=== PATIENT | female | born 1955 | race Caucasian/White ===

== ENCOUNTER → 2019-02-27 | Outpatient (CLI) | payer OTHER ==
[~2019-02-27] MED LIST: ACET650S21 PO; ASCO100019 PO; BIOTIN PO; BISA10SU54 PR; CALC625T23 PO; CALCIUM PO; CARB1TAB5 PO; CHOL200024 PO; DENO60DI IV; DICL1ADH15 TP; DSS PO; FENO160T PO; GLUC-121 PO; LOSA1TAB19 PO; MAGN500T PO; MULT-516 PO; OMEG-170 PO; PREG50CA PO; RELAFEN PO; THYROXINE PO; TIZA4TAB PO; TRAM50TA2 PO; TURM538C PO; TYRO500C2 PO; VITA1TAB19 PO; ZOLP-413 PO
[2019-02-27 14:02] LABS: MICROSCOPIC NOT IND
[2019-02-27 14:05] LABS: CULTURE INDICATED? NO
[2019-02-27 14:11] LABS: INTERNATIONAL NORMALIZED RATIO 1.05 (0.93-1.1)
[2019-02-27 14:12] LABS: ALANINE AMINOTRANSFERASE 13 U/L (12-78); ALBUMIN 4.6 g/dL (3.4-5.0); ANION GAP 6 mmol/L (5-15); CALCIUM 9.4 mg/dL (8.5-10.1); CHLORIDE 111 mmol/L (98-107); CREATININE 0.88 mg/dL (0.55-1.02)
[2019-02-27 14:14] LABS: ALKALINE PHOSPHATASE 34 U/L (45-117); BILIRUBIN,TOTAL 0.4 mg/dL (0.2-1.0); TOTAL PROTEIN 7.7 g/dL (6.4-8.2)
[2019-02-27 14:23] LABS: BASOPHILS # (AUTO) 0.03 x10^3/uL (0-0.1); BASOPHILS % (AUTO) 0 % (0-1); EOSINOPHILS # (AUTO) 0.09 x10^3/uL (0-0.4); EOSINOPHILS % (AUTO) 1 % (1-7); LYMPHOCYTES # (AUTO) 2.95 x10^3/uL (1-3.4); LYMPHOCYTES % (AUTO) 34 % (22-44); MD NO; MEAN CORPUSCULAR HEMOGLOBIN 30.7 pg (27.0-34.8); MEAN CORPUSCULAR HGB CONC 33.1 g/dL (32.4-35.8); MEAN CORPUSCULAR VOLUME 92.7 fL (80-100); MONOCYTES # (AUTO) 0.53 x10^3/uL (0.2-0.8); MONOCYTES % (AUTO) 6 % (2-9); NEUTROPHILS # (AUTO) 5.01 x10^3/uL (1.8-6.8); NEUTROPHILS % (AUTO) 58 % (42-75); PLATELET COUNT 443 x10^3/uL (130-400); RED BLOOD COUNT 4.87 x10^6/uL (3.82-5.3); RED CELL DISTRIBUTION WIDTH 13.7 % (9.6-15.2)
== END | disposition home or self-care (01) ==
LOC: STAR 12:37
PROVIDERS: ATTEND Neurological Surgery
DX: M47.816 Spondylosis without myelopathy or radiculopathy, lumbar region (principal); M48.061 Spinal stenosis, lumbar region without neurogenic claudication; M43.06 Spondylolysis, lumbar region
CPT/HCPCS: 36415; 71046; 72110; 80053; 81003; 85025; 85610; 85730; 93005

== ENCOUNTER 2019-10-13 10:57 | Outpatient (CLI) | payer OTHER ==
[~2019-10-13] VITALS: Ht 160 cm; Wt 62.0 kg
[~2019-10-13 10:57] MED LIST changes: +OXYC-302 PO; +TIZA4CAP2 PO; -TIZA4TAB PO; +TIZA4TAB2 PO
[2019-10-13 11:42] VITALS: BP 149/81
[2019-10-13] MEDS ORDERED: LIDOCAINE 1%, 10ML ONE ×2 (12:37)
[2019-10-13] MEDS ORDERED: GADOTERATE 7.5 MMOL/15 ML SYR ONE (12:47)
== END 2019-10-13 18:05 | disposition home or self-care (01) ==
LOC: RAD 10:57 → SDC 10:57 → OUT 18:05
PROVIDERS: ATTEND Specialist
DX: G24.9 Dystonia, unspecified
CPT/HCPCS: 62270; 70553; 77003; A9575; J3490

== ENCOUNTER 2020-10-20 12:15 | Observation (INO) | payer MEDICARE, OTHER ==
[~2020-10-20] VITALS: Ht 160 cm; Wt 69.0 kg
[~2020-10-20 12:15] MED LIST changes: -DICL1ADH15 TP; +DICL1PAT11 TP
--- NOTE | 2020-10-20 12:35 | NUR ---
TRIAGE: PATIENT ARRIVES WITH THREE DAYS OF CHEST PAIN THAT TODAY WITH EXERTION (WALKING DOGS) IS ACCOMPANIED WTIH SOB. 95% RA. PATIENT HAS HISTORY CERVICAL DYSTONIA. SHE LIVES WITH HER THREE GRANDKIDS WHO ARE PENDING COVID TESTS. FATIGUE/DIARREA.
[2020-10-20 15:18] LABS: BASOPHILS % (AUTO) 1 % (0-1); EOSINOPHILS % (AUTO) 1 % (1-7); LYMPHOCYTES % (AUTO) 33 % (22-44); MEAN CORPUSCULAR HEMOGLOBIN 31.3 pg (27.0-34.8); MEAN CORPUSCULAR HGB CONC 33.5 g/dL (32.4-35.8); MEAN PLATELET VOLUME 8.1 fL (7.4-10.4); MONOCYTES % (AUTO) 6 % (2-9); NEUTROPHILS % (AUTO) 58 % (42-75); PLATELET COUNT 395 x10^3/uL (130-400); RED BLOOD COUNT 4.73 x10^6/uL (3.82-5.3); RED CELL DISTRIBUTION WIDTH 13.2 % (9.6-15.2)
[2020-10-20 15:24] LABS: MD NO
[2020-10-20 15:30] LABS: ALBUMIN 4.4 g/dL (3.4-5.0); ANION GAP 6 mmol/L (5-15); CALCIUM 10.5 mg/dL (8.5-10.1); CHLORIDE 107 mmol/L (98-107)
[2020-10-20 15:36] LABS: ALANINE AMINOTRANSFERASE 53 U/L (12-78); ALKALINE PHOSPHATASE 94 U/L (45-117); BILIRUBIN,TOTAL 0.3 mg/dL (0.2-1.0); CREATININE 1.09 mg/dL (0.55-1.02); TOTAL PROTEIN 7.8 g/dL (6.4-8.2); TROPONIN I 0.045 ng/mL (0.000-0.045)
--- NOTE | 2020-10-20 16:30 | NUR ---
SAFETY SECURITY OFFICER: PT TO ROOM FROM LOBBY VIA W/C
--- NOTE | 2020-10-20 16:57 | NUR ---
pt c/o intermittent sharp cp starting 1100 today. Pt reports bradycardia hx. sitting up talking with rn, hx of HTN pt hypertensive in ED. Awaiting ERMD eval.
--- NOTE | 2020-10-20 17:16 | NUR ---
ERPA IN TO ASSESS PT AND DISCUSS PLAN OF CARE.
[2020-10-20] MEDS ORDERED: METOPROLOL 1 MG/ML, 5ML IVPush ONE (17:30)
[2020-10-20] MEDS ORDERED: ASPIRIN 81 MG TABLET CHEW PO ONE (17:30)
[2020-10-20] MEDS ORDERED: NITROGLYCERIN OINT 2%, 1GM TP ONE ×2 (17:30→17:39)
[2020-10-20] MEDS ORDERED: METOPROLOL 1 MG/ML, 5ML ONE (17:39)
[2020-10-20] MEDS ORDERED: ASPIRIN 81 MG TABLET CHEW ONE (17:39)
--- NOTE | 2020-10-20 17:46 | NUR ---
DUE TO CURRENT BP, HOLDING NITRO AND METOPROLOL PER DR LANG VERBAL ORDERS. ASA ADMINISTERED. PT MAKES PLEASANT CONVERSATION WITH STAFF.
[2020-10-20] MEDS ORDERED: LOSA1TAB22 PO (18:17)
[2020-10-20] MEDS ORDERED: GABAPENTIN PO (18:18)
[2020-10-20] MEDS ORDERED: GABA300C PO (18:18)
[2020-10-20] MEDS ORDERED: TOPOMAX PO (18:21)
[2020-10-20] MEDS ORDERED: [UNRECOGNIZED DRUG - OTHER] IM (18:21)
[2020-10-20] MEDS ORDERED: POTASSIUM CHLORIDE 20 MEQ TAB.ER.PRT ONE (18:29)
[2020-10-20] MEDS ORDERED: SODIUM CHLORIDE FLUSH 10ML SYR IVF PRN (18:30)
[2020-10-20] MEDS ORDERED: POTASSIUM CHLORIDE 20 MEQ TAB.ER.PRT PO ONE (18:30)
--- NOTE | 2020-10-20 18:32 | NUR ---
PT SITTING UP IN BED. NAD NOTED AT THIS TIME. PLEASANT WITH STAFF. RESPIRATIONS EVEN AND UNLABORED ON RA.
[2020-10-20] MEDS ORDERED: BISACODYL 10 MG SUPP PR PRN (19:00)
[2020-10-20] MEDS ORDERED: POLYETHYLENE GLYCOL 17 GM PACKET PO PRN (19:00)
[2020-10-20] MEDS ORDERED: OXYcodone/APAP 5/325MG TABLET PO PRN (19:00)
[2020-10-20] MEDS ORDERED: ACETAMINOPHEN 325 MG TABLET PO PRN (19:00)
[2020-10-20] MEDS ORDERED: ONDANSETRON ODT 4 MG PO PRN (19:00)
--- NOTE | 2020-10-20 19:33 | NUR ---
PT AMBULATING BACK TO BED FROM GETTING UP TO USE BATHROOM UNSUPERVISED. NAD NOTED. PT AMBULATED WELL WITH CANE. CARDIAC, BP AND SPO2 MONITOR ATTACHED. PT REPORTS HOME CARE FOR RIVERA'S IN BETWEEN BOTOX INJECTIONS IS WARM COMPRESS OR MASSAGE FROM SPECIFIC THERAPIST. WARM COMPRESS PROVIDED.
[2020-10-20] MEDS ORDERED: ACETAMINOPHEN 325 MG TABLET ONE (19:50)
[2020-10-20] MEDS ORDERED: NITROGLYCERIN SINGLE TAB 0.4 MG SL ONE ×2 (20:08→22:59)
[2020-10-20] MEDS: NITROGLYCERIN 0.4 MG BOTTLE (25 TABS) SL PRN ×2 (20:10→23:04)
--- NOTE | 2020-10-20 20:21 | NUR ---
PT REPORTED / CP, FOLLOWING NITRO CP 11/13. "MY HEADACHE IS EVEN GETTING BETTER ALSO" PREVIOUSLY RIVERA 05/13, NOW 01/11. "IT'S VERY LIVEABLE NOW."
[2020-10-20] MEDS: SODIUM CHLORIDE FLUSH 10ML SYR IVF SCH (21:00)
[2020-10-20] MEDS ORDERED: GABAPENTIN 300 MG CAPSULE PO SCH ×2 (21:00)
[2020-10-20] MEDS ORDERED: GABAPENTIN 300 MG CAPSULE ONE (21:09)
--- NOTE | 2020-10-20 21:30 | NUR ---
REPORT TO DA RN.
--- NOTE | 2020-10-20 21:30 | NUR ---
aSSUMED CARE OF PT.
[2020-10-20] MEDS ORDERED: HEPARIN 5,000 UNITS/ML, 1ML ONE (21:54)
[2020-10-20] MEDS: HEPARIN 5,000 UNITS/ML, 1ML SQ SCH (21:58)
[2020-10-20 22:52] LABS: TROPONIN I 0.052 ng/mL (0.000-0.045)
[2020-10-20] MEDS: TOPIRAMATE 25 MG TABLET PO SCH (23:05)
--- NOTE | 2020-10-20 23:17 | NUR ---
PT REPORTS CHEST PAIN, REQUESTS AND GIVEN PRN NITRO SL, PAIN 6/, DENIES SOB. PT MEDICATED WITH SCHEDULED MEDICATIONS. WILL MONITOR FOR PAIN IMPROVEMENT.
[2020-10-20] MEDS: TIZANIDINE 4MG TABLET PO PRN (23:57)
--- NOTE | 2020-10-21 01:50 | NUR ---
Report given to John HUMPHREY.
--- NOTE | 2020-10-21 01:56 | NUR ---
REPORT FROM SHAVONNE HUMPHREY, PT CARE TRANSFERRED AT THIS TIME. NAD, RESTING ON HOSPITAL BED, NO CHANGE IN CONDITION, WCTM. WAITING FOR ADMIT BED.
[2020-10-21 02:55] LABS: BASOPHILS % (AUTO) 1 % (0-1); EOSINOPHILS % (AUTO) 2 % (1-7); LYMPHOCYTES % (AUTO) 47 % (22-44); MEAN CORPUSCULAR HEMOGLOBIN 31.6 pg (27.0-34.8); MEAN PLATELET VOLUME 7.8 fL (7.4-10.4); MONOCYTES % (AUTO) 8 % (2-9); NEUTROPHILS % (AUTO) 42 % (42-75); PLATELET COUNT 335 x10^3/uL (130-400); RED BLOOD COUNT 4.31 x10^6/uL (3.82-5.3); RED CELL DISTRIBUTION WIDTH 13.2 % (9.6-15.2)
[2020-10-21 02:56] LABS: MD NO
[2020-10-21 02:58] LABS: ANION GAP 6 mmol/L (5-15); CALCIUM 9.6 mg/dL (8.5-10.1); CHLORIDE 110 mmol/L (98-107); CHOLESTEROL, TOTAL 187 mg/dL (140-239); CREATININE 0.97 mg/dL (0.55-1.02); TRIGLYCERIDES 239 mg/dL (50-200); VLDL CHOLESTEROL 48 mg/dL (0-25)
[2020-10-21 03:00] LABS: CHOL/HDL RATIO 4.6; HDL CHOL % 22 % (28-40); HDL CHOLESTEROL (DIRECT) 41 mg/dL (40-60); LDL CHOLESTEROL,CALCULATED 98 mg/dL (54-169); LDL/HDL RATIO 2.4 (0.5-3.0)
[2020-10-21 03:07] LABS: TROPONIN I 0.047 ng/mL (0.000-0.045)
--- NOTE | 2020-10-21 03:45 | NUR ---
late entry due to pt care: pt resting on hospital bed, nad, eyes closed, even and unlabored respirations, no change in condition, appears comfortable, bed in lowest, waiting for admit bed, wc
--- NOTE | 2020-10-21 05:35 | NUR ---
pt updated on poc, nad, appears comfortable, denies additional needs, resting on hospital bed, wctm. waiting for admit bed.
[2020-10-21] MEDS: HEPARIN 5,000 UNITS/ML, 1ML SQ SCH ×2 (05:37→11:30)
[2020-10-21] MEDS ORDERED: HEPARIN 5,000 UNITS/ML, 1ML ONE ×2 (05:40→11:26)
[2020-10-21] MEDS ORDERED: ASPIRIN 81 MG TABLET EC PO SCH (06:00)
[2020-10-21] MEDS ORDERED: LEVOTHYROXINE 50 MCG TABLET PO SCH (06:00)
--- NOTE | 2020-10-21 06:46 | NUR ---
pt resting on hospital bed, appears comfortable, nad, call light on bed, bed in lowest, waiting for admit bed. wctm.
--- NOTE | 2020-10-21 06:56 | NUR ---
bedside report to gramee hudson, pt care transferred at this time.
--- NOTE | 2020-10-21 07:22 | NUR ---
REPORT FROM XAVIER, CAYETANO RESTING,
[2020-10-21] MEDS ORDERED: REGADENOSON 0.4 MG/5 ML SYRINGE ONE (08:20)
[2020-10-21] MEDS ORDERED: CHOLECALCIFEROL 1,000 UNIT TABLET PO SCH (09:00)
[2020-10-21] MEDS ORDERED: FENOFIBRATE 145 MG TABLET PO SCH (09:00)
[2020-10-21] MEDS ORDERED: LOSARTAN 100 MG TAB PO SCH (09:00)
[2020-10-21] MEDS ORDERED: CALCIUM CARBONATE 500 MG TAB.CHEW PO SCH (09:00)
[2020-10-21] MEDS ORDERED: MAGNESIUM OXIDE 400 MG TABLET PO SCH (09:00)
[2020-10-21] MEDS ORDERED: MULTIVITAMIN 1 TABLET PO SCH (09:00)
[2020-10-21] MEDS ORDERED: SENNA/DOCUSATE TABLET PO SCH (09:00)
[2020-10-21] MEDS ORDERED: HYDROCHLOROTHIAZIDE 25 MG TABLET PO SCH (09:00)
--- NOTE | 2020-10-21 09:21 | NUR ---
NUCLEAR MED PT FOR TAYO SCAN.
--- NOTE | 2020-10-21 09:27 | NUR ---
PT TO NUCLEAR MED FOR TAYO SCAN. WILL PROVIDE MEAL TRAY WHEN BACK TO ROOM HERE
[2020-10-21] MEDS ORDERED: MAGNESIUM OXIDE 400 MG TABLET ONE (10:27)
[2020-10-21] MEDS ORDERED: CALCIUM CARBONATE 500 MG TAB.CHEW ONE (10:28)
[2020-10-21] MEDS ORDERED: GABAPENTIN 300 MG CAPSULE ONE (10:28)
[2020-10-21] MEDS ORDERED: CHOLECALCIFEROL 1,000 UNIT TABLET ONE (10:28)
[2020-10-21] MEDS ORDERED: ASPIRIN 81 MG TABLET EC ONE (10:28)
[2020-10-21] MEDS: GABAPENTIN 300 MG CAPSULE PO SCH ×2 (10:35→13:46)
--- NOTE | 2020-10-21 11:00 | NUR ---
RECEIVED REPORT FROM GAIL HUMPHREY. ASSUMING CARE AT THIS TIME. PT RESTING COMFORTABLY ON HOSPITAL BED.
[2020-10-21] MEDS: TOPIRAMATE 25 MG TABLET PO SCH (11:30)
[2020-10-21] MEDS: TIZANIDINE 4MG TABLET PO PRN (11:30)
[2020-10-21] MEDS: SODIUM CHLORIDE FLUSH 10ML SYR IVF SCH (11:31)
[2020-10-21] MEDS ORDERED: NITROGLYCERIN SINGLE TAB 0.4 MG SL ONE (11:42)
--- NOTE | 2020-10-21 12:30 | NUR ---
REPORT GIVEN TO ISRRAEL HUMPHREY. RTG [id number]
[2020-10-21 13:05] VITALS: BP 128/81
== END 2020-10-21 15:30 | disposition home or self-care (01) ==
LOC: ED 17:54 → EDIP 18:19 → INTOOBSV 18:19 → 4EST 10-21 12:54
PROVIDERS: ADMIT Internal Medicine; ATTEND Family Medicine
DX: R07.89 Other chest pain (principal); Z20.828 Contact with and (suspected) exposure to other viral communicable diseases; I20.0 Unstable angina; E87.6 Hypokalemia; I10 Essential (primary) hypertension; G62.9 Polyneuropathy, unspecified; E03.9 Hypothyroidism, unspecified; M19.90 Unspecified osteoarthritis, unspecified site; M85.80 Other specified disorders of bone density and structure, unspecified site; E78.5 Hyperlipidemia, unspecified; M48.061 Spinal stenosis, lumbar region without neurogenic claudication; M54.16 Radiculopathy, lumbar region; M81.0 Age-related osteoporosis without current pathological fracture; Z91.040 Latex allergy status; Z79.899 Other long term (current) drug therapy
CPT/HCPCS: 36415; 71045; 78452; 80048; 80053; 80061; 83735; 84484; 85025; 87635; 93005; 93017; 96372; 99285; A9502; G0378; J1644; J2785